=== PATIENT | female | born 1970 | race Caucasian/White ===

== ENCOUNTER 2018-04-22 09:19 | Day surgery (SDC) | payer SELFPAY ==
[2018-04-22] MEDS ORDERED: Lactated Ringer's 500 ML IV ONE (09:50)
[2018-04-22] MEDS ORDERED: Midazolam 2 MG/2 ML VIAL ONE (10:47)
[2018-04-22] MEDS ORDERED: Propofol 10 mg/ml Inj (20 ML) ONE (10:47)
[2018-04-22 11:28] VITALS: BP 117/64; PULSE 76; RESP 18; TEMP 97.5; O2SAT 100
== END 2018-04-22 11:36 | disposition home or self-care (01) ==
LOC: H.ENDO 09:19
PROVIDERS: ATTEND Internal Medicine Gastroenterology
DX: K57.30 Diverticulosis of large intestine without perforation or abscess without bleeding (principal); K64.0 First degree hemorrhoids; K62.89 Other specified diseases of anus and rectum
CPT/HCPCS: 45378; J2001; J2250; J2704; J7120